=== PATIENT | female | born 1960 | race African-American/Black ===

== ENCOUNTER 2016-11-07 15:12 | Inpatient (IN) | payer MEDICARE, MEDICAID, OTHER ==
[~2016-11-07] VITALS: Ht 170.2 cm; Wt 83.1 kg
[~2016-11-07 15:12] MED LIST: BENZ0.5T PO; ENAL10 PO
[2016-11-14] MEDS ORDERED: LISI-515 PO (10:24)
[2016-11-14] MEDS ORDERED: WARF-23 PO (10:24)
[2016-11-14] MEDS ORDERED: BENZ2TAB PO (10:24)
[2016-11-14] MEDS ORDERED: BUSP15TA PO (10:24)
[2016-11-14] MEDS ORDERED: AMLO5TAB2 PO (10:24)
[2016-11-19] VITALS (11 sets, daily range): BP systolic 111–220; BP diastolic 56–120; PULSE 54–80; RESP 16–20; TEMP 97–99; O2SAT 99–100
[2016-11-19] MEDS ORDERED: LACTATED RINGER'S 1000 ML IV SCH (07:00)
[2016-11-19] MEDS ORDERED: METOPROLOL TARTRATE 25 MG TAB PO PRN (07:00)
[2016-11-19] MEDS ORDERED: INSULIN HUMAN REGULAR 1,000 UNITS/10 ML VIAL SQ PRN (07:00)
[2016-11-19] MEDS ORDERED: SODIUM CHLORID 0.9% 500 ML IV SCH (07:00)
[2016-11-19] MEDS ORDERED: MISCELLANEOUS NURSING INFORMATION XX SCH (07:15)
--- NOTE | 2016-11-19 07:16 | PD.VS.PN ---
Pre-operative Note Pre-operative diagnosis: Asymptomatic R carotid stenosis Planned procedure: R CEA Labs: Hct 40 plt 201 Cr 0.8 alb 3.8 INR 1.0 Blood: T&S Imaging: CTA reviewed; high grade R carotid stenosis Orders: NPO Kefzol 2g OCTOR lopressor 10mg IV now Post-operative destination: CICU Operative site marked: Yes Consent: Informed consent has been obtained from Yany Carver. I have explained the procedure in detail and discussed the risks, benefits, and potential complications. All questions have been answered. Francis Daley MD Nov 19, 2016 07:15
[2016-11-19] MEDS ORDERED: BUPIVACAINE/EPINEPHRINE 0.25% PF 30 ML VIAL ONE (07:25)
[2016-11-19] MEDS ORDERED: LIDOCAINE HCL 1% 20 ML VIAL ONE (07:26)
[2016-11-19] MEDS ORDERED: VANCOMYCIN 500 MG VIAL ONE (07:26)
[2016-11-19] MEDS ORDERED: HEPARIN SODIUM - SQ 10,000 UNITS/ML VIAL ONE (07:26)
[2016-11-19] MEDS ORDERED: METOPROLOL TARTRATE 5 MG/5 ML VIAL IV PUSH PRN ×2 (07:30→11:15)
[2016-11-19] MEDS ORDERED: HEPARIN SODIUM - IV 10,000 UNITS/10 ML VIAL ONE (07:36)
[2016-11-19] MEDS ORDERED: PROTAMINE SULFATE 50 MG/5 ML VIAL ONE (07:36)
[2016-11-19] MEDS ORDERED: ceFAZolin 2 GM PREMIX 50 ML ONE (08:02)
[2016-11-19] MEDS ORDERED: MIDAZOLAM HCL 2 MG/2 ML VIAL ONE (08:12)
--- NOTE | 2016-11-19 08:22 | PD.CAR.PN ---
CVT Progress Note CVT: POD #: 0 Subjective/Hospital Course: No changes including cardiac that should preclude going to OR. Heart reg rate. Clear BS Objective: Vital Signs Date Time Temp Pulse Resp B/P Pulse Ox O2 Delivery O2 Flow Rate FiO2 11/19/16 07:34 98.2 75 20 220/120 99 Francis Daley MD Nov 19, 2016 08:22
[2016-11-19 10:02] LABS: PROTHROMBIN TIME - PATIENT 11.6 SEC (9.8-11.6)
--- NOTE | 2016-11-19 10:52 | HHI.PR ---
Immediate Post Op Note Procedure Date: Nov 19, 2016 Pre Op Diagnosis: High grade R carotid stenosis Post Op Diagnosis: High grade R carotid stenosis Surgeon: Francis Daley Travel Sales Consultant(s): Justus Kingston Procedure: R CEA Findings: high grade soft plaque at bifurcation Complications: none apparent; neuro intact upon awakening Specimen(s) removed: plaque Estimated blood loss: 150 Anesthesia: General Drains: None Fluids: 1100 mL x'oid Patient to: PACU Patient Condition: Good Implant/Devices: SEE IMPLANT LOG (if applicable) Date/Time of Procedure: SEE SURGICAL CARE RECORD Francis Daley MD Nov 19, 2016 10:52
[2016-11-19] MEDS ORDERED: DO NOT ADM ANY ANTICOAGULANT DRUGS XX PRN (11:05)
[2016-11-19] MEDS ORDERED: fentaNYL CITRATE 250 MCG/5 ML AMP ONE (11:10)
[2016-11-19] MEDS ORDERED: LACTATED RINGER'S 1000 ML INJ 1,000 ML IV SCH (11:11)
[2016-11-19] MEDS ORDERED: POTASSIUM PHOSPHATE INJ 21 MMOL in SODIUM CHLOR 0.9% 250 ML INJ 250 ML IV PRN (11:15)
[2016-11-19] MEDS ORDERED: Post-op Orders (for Pharmacy) MISC OTHER ONE (11:15)
[2016-11-19] MEDS ORDERED: SODIUM CHLORIDE 0.9% FLUSH 5 ML FLUSH IV FLUSH PRN (11:15)
[2016-11-19] MEDS ORDERED: MAGNESIUM SULFATE 1 GM PREMIX 200 ML IV PRN (11:15)
[2016-11-19] MEDS ORDERED: POTASSIUM CHLOR 20 MEQ PREMIX 100 ML IV PRN (11:15)
[2016-11-19] MEDS ORDERED: hydrALAZINE HCL 20 MG/ML VIAL IV PUSH PRN (11:15)
[2016-11-19] MEDS ORDERED: ONDANSETRON HCL 4 MG/2 ML VIAL IV PUSH PRN (11:15)
[2016-11-19] MEDS ORDERED: ONDANSETRON HCL 4 MG/2 ML VIAL IV PUSH ONE (12:00)
[2016-11-19] MEDS ORDERED: NEOSTIGMINE 3 MG/3 ML SYR IV ONE (12:00)
[2016-11-19] MEDS ORDERED: NORMOSOL R INJ 1,000 ML IV ONE (12:00)
[2016-11-19] MEDS ORDERED: PROPOFOL 200 MG/20 ML AMP IV ONE (12:00)
[2016-11-19] MEDS ORDERED: SODIUM CHLORID 0.9% 500 ML INJ 500 ML IV ONE (12:00)
[2016-11-19] MEDS ORDERED: ePHEDrine/NS 50 MG/5 ML SYR IV ONE (12:00)
[2016-11-19] MEDS: ACETAMINOPHEN/HYDROcodone 325 MG/5 MG TAB PO PRN ×2 (16:29→20:53)
[2016-11-19] MEDS: FAMOTIDINE 20 MG TAB PO SCH (20:53)
[2016-11-19] MEDS: METOPROLOL TARTRATE 100 MG TAB PO SCH (20:53)
[2016-11-19] MEDS: cloNIDine HCL 0.1 MG TAB PO SCH (20:53)
[2016-11-19] MEDS: SODIUM CHLORIDE 0.9% FLUSH 5 ML FLUSH IV FLUSH SCH (20:55)
[2016-11-19] MEDS ORDERED: ATORVASTATIN 40 MG TAB PO SCH (21:00)
[2016-11-20] VITALS (16 sets, daily range): BP systolic 128–161; BP diastolic 57–70; PULSE 49–71; RESP 16–18; TEMP 98–99.6; O2SAT 98–100
[2016-11-20 06:28] LABS: REVIEW FLAG FINAL
[2016-11-20 06:44] LABS: BICARBONATE 27.9 MEQ/L (21.0-32.0); MAGNESIUM 2.4 MG/DL (1.5-2.5); POTASSIUM 3.9 MEQ/L (3.5-5.1)
[2016-11-20] MEDS: METOPROLOL TARTRATE 100 MG TAB PO SCH (08:33)
[2016-11-20] MEDS: FAMOTIDINE 20 MG TAB PO SCH (08:33)
[2016-11-20] MEDS: cloNIDine HCL 0.1 MG TAB PO SCH (08:33)
[2016-11-20] MEDS: SODIUM CHLORIDE 0.9% FLUSH 5 ML FLUSH IV FLUSH SCH (08:33)
[2016-11-20] MEDS ORDERED: ASPIRIN EC 81 MG TABEC PO SCH (09:00)
--- NOTE | 2016-11-20 09:35 | PD.VS.PN ---
Subjective POD #: 1 Procedure(s): R CEA Subjective/Hospital Course Pt is a 56/F patient post op R CEA Pt sitting in bed this am resting comfortably has no complaints Incision to right side of neck intact with no redness, swelling or drainage Objective Vitals/I&O Date Time Temp Pulse Resp B/P Pulse Ox O2 Delivery O2 Flow Rate FiO2 11/20/16 07:39 98 Nasal Cannula 2.00 11/20/16 06:00 59 11/20/16 05:00 60 11/20/16 04:00 60 11/20/16 03:00 100 Nasal Cannula 2.00 11/20/16 03:00 59 11/20/16 03:00 98.0 60 18 131/61 100 11/20/16 02:00 49 11/20/16 01:00 58 11/20/16 00:48 Nasal Cannula 2.00 11/20/16 00:00 58 11/19/16 23:00 66 11/19/16 23:00 98.5 80 18 117/58 100 Manual Cuff/Palpation 11/19/16 23:00 100 Nasal Cannula 2.00 11/19/16 22:00 58 11/19/16 21:00 55 11/19/16 20:00 54 11/19/16 19:00 55 11/19/16 19:00 97.0 61 18 119/56 100 11/19/16 19:00 100 Nasal Cannula 2.00 11/19/16 18:45 59 11/19/16 17:58 16 11/19/16 17:45 98.7 56 16 111/59 100 11/19/16 17:45 100 Nasal Cannula 2.00 11/19/16 17:30 54 11/19/16 16:20 99.0 54 16 138/74 100 Arterial Line Automatic Cuff 11/19/16 15:00 98.9 56 16 139/82 99 Arterial Line Automatic Cuff 11/19/16 15:00 97.5 56 16 139/82 99 Nasal Cannula 2 11/19/16 15:00 100 Nasal Cannula 2.00 11/19/16 14:00 53 16 133/78 98 Nasal Cannula 2 11/19/16 13:00 51 16 129/71 98 Nasal Cannula 2 11/19/16 12:30 50 16 127/68 97 Nasal Cannula 2 11/19/16 12:15 47 15 130/69 96 Nasal Cannula 2 11/19/16 12:00 46 15 135/69 98 Nasal Cannula 3 11/19/16 11:45 45 14 123/70 98 Nasal Cannula 3 126/57 11/19/16 11:30 42 13 124/68 97 Nasal Cannula 3 122/55 11/19/16 11:15 43 12 128/69 96 Nasal Cannula 3 120/56 11/19/16 11:05 97.4 48 10 141/84 95 Nasal Cannula 3 131/57 Exam: GENERAL: resting comfortably, GCS 15, NAD SKIN: Warm and dry. HEAD: Normocephalic. CN 2-12 intact NECK: Supple, trachea midline. No JVD or lymphadenopathy. Incision to right side of neck intact with no redness, swelling or drainage CARDIOVASCULAR: Regular rate and rhythm without murmurs, gallops, or rubs. RESPIRATORY: Breath sounds equal bilaterally. No accessory muscle use. MUSCULOSKELETAL: No cyanosis, or edema. Incisions: right side of neck incision intact No redness No drainage No swelling Laboratory Laboratory Tests Test 11/20/16 05:50 Hemoglobin 11.4 Hematocrit 35.0 Sodium Level 139 Potassium Level 3.9 Chloride Level 103 Carbon Dioxide Level 27.9 Anion Gap 8 Blood Urea Nitrogen 13 Creatinine 0.68 Estimat Glomerular Filtration 109 Rate Random Glucose 96 Calcium Level 8.3 Phosphorus Level 3.4 Magnesium Level 2.4 Assessment and Plan Plan Possible D/C this afternoon Pt OOB today Kim Bowles Nov 20, 2016 09:35
[2016-11-20] MEDS ORDERED: ENOXAPARIN SODIUM 40 MG/0.4 ML SYRINGE SQ SCH (10:00)
[2016-11-20] MEDS ORDERED: ASPI81TA11 PO (12:51)
--- NOTE | 2016-11-20 13:18 | PD.VS.DC ---
Kim Bowles 11/20/16 1318: cc: Felice Rios DO Discharge Summary Admission Date: Nov 19, 2016 at 06:25 Discharge Date: Nov 20, 2016 Admission Diagnosis: (1) Carotid artery disease Discharge Diagnosis: (1) Carotid artery disease Status: Chronic Brief History from admission Pt is a 56/F who was admitted for R CEA, pt has done well and is ready to go home today with family Pt denies any complaints of headache dizziness or weakness CN 2-12 remains intact Procedure(s): R CEA Significant Findings Laboratory Tests Test 11/20/16 05:50 Hemoglobin 11.4 GM/DL (11.6-15.3) Calcium Level 8.3 MG/DL (8.5-10.1) Hospital Course: GENERAL: pt alert and oriented times 3 in NAD, GCS 15 SKIN: Warm and dry. NECK: Supple, trachea midline. No JVD or lymphadenopathy. Incision to right side of neck intact with no redness drainage or swelling CARDIOVASCULAR: Regular rate and rhythm without murmurs, gallops, or rubs. RESPIRATORY: Breath sounds equal bilaterally. No accessory muscle use. MUSCULOSKELETAL: No cyanosis, or edema. CN 2-12 Intact Discharge Condition: Good Discharge Disposition: Discharge Home Discharge Instructions: Report any new onset of Headache Dizziness or Weakness F/U with Primary Care Physician in one week for Blood Pressure Pt scheduled for Follow-Up in out patient clinic on 12/19/16 at 0830 Keep Incision open to air clean and dry, DO NOT apply any ointments or creams to incision site Kim [facility] Critical access hospital Any questions or concerns: Call [facility] V[facility] Surgery at [facility] [phone] Francis Daley MD 11/20/16 1348: cc: Felice Rios DO Pt had R CEA on 11/19. No intraoperative or post-operative problems. D/C POD#1 on ASA. Kim Bowles Nov 20, 2016 13:18 Francis Daley MD Nov 20, 2016 13:48
--- NOTE | 2016-11-24 14:06 | MP ---
cc: CORRINA DALEY MD DATE OF SURGERY: 11/19/2016 PREOPERATIVE DIAGNOSIS Asymptomatic right carotid stenosis. POSTOPERATIVE DIAGNOSIS Asymptomatic right carotid stenosis. PROCEDURE Right coronary artery. ATTENDING SURGEON Corrina Daley ANIMAL LABORATORY HELPER SURGEON Justus Kingston ANESTHESIA General. INDICATIONS Ms. Carver is a 56-year-old lady with hypertension and cerebrovascular occlusive disease. She had a previous known carotid based stroke and has recovered fully from this. A preoperative CT scan suggested that she had a high-grade, greater than 90% right carotid stenosis, and was taken to the operating room for a prophylactic carotid endarterectomy. DETAILS OF PROCEDURE Informed consent was obtained from the patient. She was taken to the operating room and placed supine on the operating table and an appropriate timeout was taken identifying the patient, operative site and planned procedure. The administration of two grams of Kefzol was initiated prior to skin incision, and will be discontinued after a single preoperative dose. Everyone in the room agreed with the timeout and we proceeded. Her right neck was prepped and draped. An incision was made along the anterior border of the sternocleidomastoid and carried down to subcutaneous tissue with electrocautery. The facial vein was identified and the venous plexus was identified and ligated with 3-0 silk. The common carotid artery was identified and encircled with a vessel loop. The superior thyroid and external carotid arteries were identified and encircled with a silk vessel loop. The distal internal carotid artery was identified and encircled with a vessel loop. The hypoglossal nerve was easily identified and protected at all times. The patient was systemically heparinized. The ACT was confirmed to be greater than 215. Throughout the remainder of the case the ACT was kept greater than 250. Distal and proximal control of the internal vein and common carotid arteries were obtained with profunda clamps. The external carotid artery was controlled with a profunda clamp and the superior thyroid artery was controlled with Lyons tying using the silk suture. A longitudinal arteriotomy was made with an 11 blade, extended with Kamiah scissors. The plaque was identified. The Strong-Inahara shunt was then inserted. It had been flushed preoperatively and inserted distally and proximally. Doppler confirmed the shunt was functional. There were no EEG changes during this time. The carotid artery was endarterectomized without difficulty and a nice endpoint was achieved and tacked down with distal 6-0 Prolene sutures. A bovine pericardial patch was brought up on the field and sewn onto the anterior wall of the carotid using running 5-0 Prolene suture. Prior to completing the patch, the shunt was clamped and removed. The arteries were then re-clamped and the patch was completed. It was flushed. Repair stitches with 6-0 Prolene were then created. There was a nice Doppler signal as the clamps were released from the internal and external carotid arteries. The wound was made hemostatic and the wound was closed with 2-0 Polysorb, 3-0 Polysorb and 4-0 Monocryl. Sponge and needle counts were correct at the end of the case. At the end of the case there was still no EEG changes. The patient awoke and had no neurological deficit. Upon extubation she was taken to the recovery room in stable condition. MD LUIS Stringer/MOO /12:12 PM /1:45 PM ELLIOTT
== END 2016-11-20 14:25 | disposition home or self-care (01) | DRG 39 ==
LOC: EDBD → HSDI 11-19 06:25 → MERGE 11-19 06:25 → HCPC 11-19 17:18
PROVIDERS: ADMIT Surgery; ATTEND Surgery
PROC: 03CK0ZZ Extirpation of Matter from Right Internal Carotid Artery, Open Approach (ICD-10-PCS; principal; 2016-11-19 08:27)
PROC: 03UK0KZ Supplement Right Internal Carotid Artery with Nonautologous Tissue Substitute, Open Approach (ICD-10-PCS; 2016-11-19 08:27)
DX: I65.21 Occlusion and stenosis of right carotid artery (principal); I10 Essential (primary) hypertension; Z86.73 Personal history of transient ischemic attack (TIA), and cerebral infarction without residual deficits
CPT/HCPCS: 80048; 83735; 84100; 85014; 85018; 85610; 86850; 86900; 86901; C1768; J0690; J1644; J1650; J2250; J2405; J2710; J2720; J3010; J3370; J7040; J7120

== ENCOUNTER → 2016-11-13 | Outpatient (CLI) | payer MEDICARE, MEDICAID ==
[~2016-11-13] MED LIST changes: +AMLO5TAB2 PO; +ASPI81TA11 PO; +BENZ2TAB PO; +BUSP15TA PO; +LISI-515 PO; +WARF-23 PO
[2016-11-13 12:09] LABS: AUTOMATED NEUTROPHIL # 5.3 TH/MM3 (1.8-7.7); BASOPHIL % 0.3 % (0.0-2.0); EOSINOPHIL # 0.1 TH/MM3 (0-0.4); EOSINOPHIL % 0.9 % (0.0-4.0); HEMATOCRIT 40.1 % (35.0-46.0); HEMO FLAGS DIFF FINAL; LYMPH % 20.6 % (9.0-44.0); LYMPHOCYTE # 1.5 TH/MM3 (1.0-4.8); MEAN CELL VOLUME 85.4 FL (80.0-100.0); MEAN CORPUSCULAR HEMOGLOBIN 29.1 PG (27.0-34.0); MEAN CORPUSCULAR HGB CONC 34.1 % (32.0-36.0); MONO % 8.4 % (0.0-8.0); NEUT % 69.8 % (16.0-70.0); PLATELET COUNT 201 TH/MM3 (150-450); RED CELL DISTRIBUTION WIDTH 13.5 % (11.6-17.2); WHITE BLOOD COUNT 7.5 TH/MM3 (4.0-11.0)
[2016-11-13 12:17] LABS: BACTERIA, URINE FEW /hpf; BLOOD, URINE TRACE (NEG); COMMENT (UR) CULT NOT INDICATED; CULTURE IF INDICATED CULT NOT INDICATED; GLUCOSE,URINE NEG (NEG); HYALINE CAST, URINE 1 /lpf (RARE); KETONE, URINE NEG (NEG); MUCUS URINE MANY /lpf (OCC); NITRITE,URINE NEG (NEG); PH, URINE 5.5 (5.0-8.5); SQUAMOUS EPITHELIAL CELL URINE 3 /hpf (0-5); TRANSITIONAL EPI CELLS, URINE <1 /hpf; URINE COLOR YELLOW (YELLW/STRAW)
[2016-11-13 12:49] LABS: ALKALINE PHOSPHATASE 90 U/L (45-117); ALT (GPT) 20 U/L (10-53); ANION GAP 3 MEQ/L (5-15); AST (GOT) 12 U/L (15-37); BICARBONATE 31.8 MEQ/L (21.0-32.0); BLOOD UREA NITROGEN 14 MG/DL (7-18); CHLORIDE 107 MEQ/L (98-107); GLOMERULAR FILTRATION RATE 96 ML/MIN (>89); GLUCOSE,FASTING 90 MG/DL (74-99); SODIUM (NA) 142 MEQ/L (136-145); TOTAL BILIRUBIN ADULT 0.6 MG/DL (0.2-1.0)
--- NOTE | 2016-11-14 17:07 | EKG ---
Date Performed: 11/13/2016 Time Performed: 11:35:53 PTAGE: 56 years EKG: Sinus rhythm NONSPECIFIC T-WAVE ABNORMALITY Probable left ventricular hypertrophy. BORDERLINE ECG NO PREVIOUS TRACING DOCTOR: Rody Ramirez Interpretating Date/Time 04/29/2017 14:18:18
== END ==
LOC: EDBD → CPRE 11:00 → MERGE 11:00 → EDBD 11:00
PROVIDERS: ATTEND Surgery
DX: Z01.812 Encounter for preprocedural laboratory examination (principal); Z01.810 Encounter for preprocedural cardiovascular examination; I65.21 Occlusion and stenosis of right carotid artery; R94.31 Abnormal electrocardiogram [ECG] [EKG]
CPT/HCPCS: 36415; 80053; 81001; 85025; 85610; 93005